=== PATIENT | female | born 1980 | race African-American/Black ===

== ENCOUNTER 2024-06-18 11:51 | Emergency (ER) | payer MEDICARE, OTHER ==
[~2024-06-18] VITALS: Ht 167.6 cm; Wt 145.1 kg
[2024-06-18] MEDS ORDERED: ACETAMINOPHEN ES 500 MG TABLET ONE (12:23)
[2024-06-18] MEDS ORDERED: METOCLOPRAMIDE HCL 10 MG TABLET ONE (12:24)
[2024-06-18] MEDS: METOCLOPRAMIDE HCL 10 MG TABLET PO ONE (12:25)
[2024-06-18] MEDS: ACETAMINOPHEN ES 500 MG TABLET PO ONE (12:26)
[2024-06-18 13:09] VITALS: BP 128/72; TEMP 97.9; O2SAT 99
== END 2024-06-18 13:10 | disposition home or self-care (01) ==
LOC: ER 11:51
DX: R51.9 Headache, unspecified (principal); F41.9 Anxiety disorder, unspecified; R19.7 Diarrhea, unspecified; F32.A Depression, unspecified; Z88.6 Allergy status to analgesic agent
CPT/HCPCS: 99283; J8597